=== PATIENT | female | born 1945 | race Caucasian/White ===

== ENCOUNTER 2018-09-23 07:08 | Day surgery (SDC) | payer MEDICARE, BC ==
[2018-09-21 14:34] LABS: BASOPHILS % (AUTO) 0.1 % (0-1); EOSINOPHILS # (AUTO) 0.2 X10'3 (0-0.9); EOSINOPHILS % (AUTO) 2.1 % (0-6); HEMATOCRIT 47.5 % (35.0-45.0); HEMOGLOBIN 15.5 g/dl (12.0-16.0); LYMPHOCYTES # (AUTO) 1.6 X10'3 (1.1-4.8); MEAN CORPUSCULAR HEMOGLOBIN 29.9 PG (27.0-31.0); MEAN CORPUSCULAR HGB CONC 32.7 % (33.0-36.5); MEAN CORPUSCULAR VOLUME 91.4 FL (78-98); MEAN PLATELET VOLUME 9.2 FL (7.4-10.4); MONOCYTES # (AUTO) 0.6 X10'3 (0-0.9); MONOCYTES % (AUTO) 8.7 % (2-12); NEUTROPHILS # (AUTO) 4.9 X10'3 (1.8-7.7); NEUTROPHILS % (AUTO) 67.1 % (42-75); PLATELET COUNT 214 X10'3 (140-440); RED CELL DISTRIBUTION WIDTH 13.1 % (11.5-14.5); WHITE BLOOD COUNT 7.2 X10'3 (4.5-11.0)
[2018-09-21 14:46] LABS: PARTIAL THROMBOPLASTIN TIME 30 SECONDS (22-32); PROTHROMBIN TIME 10.2 SECONDS (9.0-12.0)
[2018-09-21 14:49] LABS: ANION GAP 9 (8-16); BLOOD UREA NITROGEN 21 MG/DL (7-18); BUN/CREATININE RATIO 22.8 (6.6-38.0); CHLORIDE 103 MMOL/L (99-107); CREATININE 0.92 MG/DL (0.40-0.90); GLUCOSE 75 MG/DL (70-104); POTASSIUM 4.1 MMOL/L (3.5-5.1); SODIUM 141 MMOL/L (135-145); TOTAL CARBON DIOXIDE 28.9 MMOL/L (24-32); eGFR 60 ML/MIN
[2018-09-21 14:50] LABS: ALANINE AMINOTRANSFERASE 27 U/L (12-78); ALBUMIN 3.9 G/DL (3.4-5.0); ALBUMIN/GLOBULIN RATIO 1.1 (1.1-1.5); ALKALINE PHOSPHATASE 107 IU/L (46-116); ASPARTATE AMINO TRANSFERASE 25 U/L (10-37); BILIRUBIN,TOTAL 0.3 MG/DL (0.1-1.0); TOTAL PROTEIN 7.5 G/DL (6.4-8.2)
[~2018-09-23] VITALS: Ht 162.6 cm; Wt 72.0 kg
[2018-09-23] VITALS (11 sets, daily range): BP systolic 102–147; BP diastolic 57–89
[2018-09-23] MEDS ORDERED: LORazepam 0.5 MG tablet PO PRN (07:30)
[2018-09-23] MEDS ORDERED: normal saline 1000ml 1,000 ML IV SCH (07:30)
[2018-09-23] MEDS ORDERED: nitroGLYCERIN 0.4mg SUBLingual tab SL PRN (07:30)
[2018-09-23] MEDS ORDERED: diphenhydrAMINE 25mg capsule PO PRN (07:30)
[2018-09-23] MEDS ORDERED: methylPREDNISolone sod succ 125mg/2ml vial IV ONE (07:30)
[2018-09-23] MEDS ORDERED: TETR-47 OP (08:24)
[2018-09-23] MEDS ORDERED: [UNRECOGNIZED DRUG - CODE] PO (08:24)
[2018-09-23] MEDS ORDERED: LISI40TA4 PO (08:24)
[2018-09-23] MEDS ORDERED: LOVA40TA2 PO (08:24)
[2018-09-23] MEDS ORDERED: PANT40TA4 PO (08:24)
[2018-09-23] MEDS ORDERED: MULT-1085 PO (08:24)
[2018-09-23] MEDS ORDERED: MELO-102 PO (08:24)
[2018-09-23] MEDS ORDERED: BIOT25008 PO (08:24)
[2018-09-23] MEDS ORDERED: METO-539 PO (08:24)
[2018-09-23] MEDS ORDERED: ATRNS (08:24)
[2018-09-23] MEDS ORDERED: iohexol 350 MG/ML 50ML vial IV ONE (09:03)
[2018-09-23] MEDS ORDERED: LIDOcaine 1% (10mg/ml)w/preservative injection 20ml MDV ONE (09:03)
[2018-09-23] MEDS ORDERED: midazolam 2 mg/2 ml injection ONE (09:03)
[2018-09-23] MEDS ORDERED: fentaNYL/PF 50MCG/1 ML 2ML syringe ONE (09:03)
[2018-09-23] MEDS ORDERED: iohexol 350MG/ML 100ml bottle IV ONE (09:03)
[2018-09-23] MEDS ORDERED: HYDROcodone/acetaminophen 10/325mg tab PO PRN (10:40)
[2018-09-23] MEDS ORDERED: HYDROcodone/acetaminophen 5mg/325mg tablet PO PRN (10:40)
[2018-09-23] MEDS ORDERED: ondansetron/PF 4mg/2ml inj IV PRN (10:40)
[2018-09-23] MEDS ORDERED: proCHLORperazine 10 MG/2 ml inj IV PRN (10:40)
[2018-09-23] MEDS ORDERED: OXAZEpam 15mg capsule PO PRN (10:40)
== END 2018-09-23 16:00 | disposition home or self-care (01) ==
LOC: SSTAY O 07:08
PROVIDERS: ATTEND Internal Medicine Cardiovascular Disease
DX: I25.10 Atherosclerotic heart disease of native coronary artery without angina pectoris (principal); I10 Essential (primary) hypertension; E78.5 Hyperlipidemia, unspecified; M19.90 Unspecified osteoarthritis, unspecified site; K21.9 Gastro-esophageal reflux disease without esophagitis; F32.9 Major depressive disorder, single episode, unspecified; Z72.89 Other problems related to lifestyle; Z96.659 Presence of unspecified artificial knee joint; Z87.891 Personal history of nicotine dependence; Z96.643 Presence of artificial hip joint, bilateral; Z98.890 Other specified postprocedural states; Z79.899 Other long term (current) drug therapy
CPT/HCPCS: 36415; 80053; 85025; 85610; 85730; 93005; 93458; 99152; 99153; A6257; C1760; J1644; J2001; J2250; J2930; J3010; J7030; Q0163; Q9967; C1769